=== PATIENT | male | born 1960 | race Caucasian/White ===

== ENCOUNTER 2018-10-14 07:05 | Emergency (ER) | payer BC ==
[~2018-10-14] VITALS: Ht 175.3 cm; Wt 66.2 kg
[2018-10-14 07:05] VITALS: BP_SYST 181
[2018-10-14 08:47] LABS: BILIRUBIN,URINE NEGATIVE (NEGATIVE); CLARITY/URINE CLEAR (CLEAR); COLOR,URINE YELLOW (YELLOW); GLUCOSE,URINE TRACE (NEGATIVE); KETONES,URINE NEGATIVE (NEGATIVE); LEUKOCYTE ESTERASE ,URINE NEGATIVE (NEGATIVE); NITRITE, URINE NEGATIVE (NEGATIVE); PROTEIN URINE NEGATIVE (NEGATIVE); UROBILINOGEN,URINE 0.2 (0.2-1.0)
[2018-10-14 08:48] LABS: BLOOD, URINE TRACE (NEGATIVE)
[2018-10-14 08:56] LABS: BACTERIA,URINE FEW /HPF (None Seen); MUCUS,URINE 1+ /LPF (None Seen); RBC,URINE 0-3 /HPF (0-3); URINE AMORPHOUS PHOSPHATES 1+ /HPF (None Seen); WBC,URINE 0-3 /HPF (0-3)
[2018-10-14 09:17] LABS: HEMOGLOBIN 14.2 g/dL (14.0-18.0); RED BLOOD CELL COUNT(AUTO) 4.72 MIL/uL (4.2-6.2); WHITE BLOOD COUNT (AUTO) 10.6 K/uL (4.8-10.8)
[2018-10-14 09:18] LABS: HEMATOCRIT 41.7 % (36-54); MEAN CORPUSCULAR HEMOGLOBIN 30 pg (27-31); MEAN CORPUSCULAR HGB CONC 34 % (32-36); MEAN CORPUSCULAR VOLUME 88 fL (79.0-98.0); NEUTROPHILS % (AUTO) 91.9 % (40.0-70.0); PLATELET COUNT (AUTO) 371 K/uL (130-430); RED CELL DISTRIBUTION WIDTH 13.1 % (9.0-15.0)
[2018-10-14 09:19] LABS: BASOPHILS % (AUTO) 0.1 % (0.0-2.0); EOSINOPHILS % (AUTO) 0.1 % (0.0-4.0); LYMPHOCYTES # (AUTO) 0.5 K/uL (1.0-5.5); LYMPHOCYTES % (AUTO) 4.4 % (20.5-51.5); MONOCYTES # (AUTO) 0.4 K/uL (0.0-1.0); MONOCYTES % (AUTO) 3.5 % (1.7-9.3); NEUTROPHILS # (AUTO) 9.7 K/uL (1.8-7.7)
[2018-10-14 09:28] LABS: CALCIUM 9.3 mg/dL (8.4-11.0); POTASSIUM 3.6 mmol/L (3.5-5.1)
[2018-10-14 09:34] LABS: ALBUMIN 4.1 g/dL (3.4-4.8); TOTAL BILIRUBIN 0.5 mg/dL (0.0-1.0)
[2018-10-14 10:30] VITALS: BP_SYST 172
== END 2018-10-14 10:30 | disposition home or self-care (01) ==
LOC: SED 07:05
DX: F41.9 Anxiety disorder, unspecified (principal); K21.9 Gastro-esophageal reflux disease without esophagitis; I10 Essential (primary) hypertension
CPT/HCPCS: 36415; 80053; 81000-TC; 83690-TC; 85025; 87086; 99284